=== PATIENT | female | born 1945 | race Caucasian/White ===

== ENCOUNTER → 2024-02-27 | Outpatient (CLI) | payer MEDICARE ==
[2024-02-27 11:12] LABS: BLOOD UREA NITROGEN 14 MG/DL (9-23); CREATININE FOR GFR 0.65 MG/DL (0.55-1.30); GLOMERULAR FILTRATION RATE > 60.0 (>39)
== END ==
LOC: M LAB 09:59
PROVIDERS: ATTEND Psychiatry & Neurology Neurology
DX: I10 Essential (primary) hypertension (principal)